=== PATIENT | female | born 1985 | race Caucasian/White ===

== ENCOUNTER 2017-01-01 20:15 | Emergency (ER) | payer SELFPAY ==
[~2017-01-01] VITALS: Ht 170.2 cm; Wt 59.1 kg
[2017-01-01] MEDS ORDERED: BACITRACIN 0.9 GM PACKET OINTMENT TP ONE (20:45)
[2017-01-01] MEDS ORDERED: PERTUSS(ACELL),DIPH,TET VAC/PF 0.5 ML VIAL IM ONE (20:45)
[2017-01-01 21:31] VITALS: BP 129/84
== END 2017-01-01 21:47 | disposition home or self-care (01) ==
LOC: EMS 20:17
DX: S91.311A Laceration without foreign body, right foot, initial encounter (principal); F10.129 Alcohol abuse with intoxication, unspecified; Y90.9 Presence of alcohol in blood, level not specified; W25.XXXA Contact with sharp glass, initial encounter; Y93.89 Activity, other specified; Y92.89 Other specified places as the place of occurrence of the external cause; Y99.8 Other external cause status
CPT/HCPCS: 12002; 90715; 99283